=== PATIENT | male | born 1975 | race Caucasian/White ===

== ENCOUNTER 2017-05-31 00:04 | Emergency (ER) | payer MEDICAID, OTHER, SELFPAY ==
[~2017-05-31] VITALS: Ht 170.2 cm; Wt 88.5 kg
[2017-05-31 00:05] VITALS: BP 151/97
[2017-05-31] MEDS ORDERED: OXYcodone/APAP 5/325MG TABLET PO ONE (01:30)
[2017-05-31] MEDS ORDERED: OXYcodone/APAP 5/325MG TABLET ONE (01:33)
== END 2017-05-31 01:47 | disposition home or self-care (01) ==
LOC: ED 01:41
DX: G89.11 Acute pain due to trauma (principal); M25.511 Pain in right shoulder; W10.9XXA Fall (on) (from) unspecified stairs and steps, initial encounter; Y93.89 Activity, other specified; Y92.89 Other specified places as the place of occurrence of the external cause; Y99.9 Unspecified external cause status
CPT/HCPCS: 99284